=== PATIENT | female | born 2000 | race Asian ===

== ENCOUNTER 2023-11-25 06:42 | Observation (INO) ==
--- NOTE | 2023-11-12 12:10 | Anesthesiology Consultation ---
Date of Service November 12, 2023 Assessment & Plan (1) Encounter for pre-operative examination: Chart Review Chart Review: Acceptable Risk for Surgery and Patient NOT seen in Pre Admission Testing Consults Requested none History Surgery Operation Date: 11/25/23 10:25 Proposed Procedures p Robotic assisted Dismembered Laparoscopic Pyeloplasty - Telly Garrett DO Height/Weight Height: 5 ft 6 in Weight: 66.224 kg Allergies Allergy/AdvReac Type Severity Reaction Status Date / Time haloperidol [From Haldol] AdvReac Mild muscle Verified 11/11/23 13:21 spasms Medications Home Medications Medication Instructions Recorded Confirmed Last Taken testosterone cypionate 200 mg/mL 200 mg IM WK 09/17/20 11/11/23 10/11/20 intramuscular oil (Depo-Testosterone) amphetamine sulfate 20 mg 20 mg PO QPM 11/11/23 11/11/23 Unknown disintegrating tablet dextroamphetamine-amphetamine 10 30 mg PO QAM 11/11/23 11/11/23 Unknown mg tablet vilazodone 20 mg tablet 20 mg PO QAM 11/11/23 11/11/23 Unknown Past Medical History Medical History [id number] transgender person Obstruction of right ureteropelvic junction (UPJ) Hydronephrosis, right History of asthma "seasonal" as a child, had to be hospitalized, no issue since approx. age 10 ADHD History of cardiac murmur as a child History of cleft lip with surgical repair Depression Anxiety Past Family History Family History Unknown Unknown family medical history adopted Past Surgical History Surgical History History of wisdom tooth extraction (10/2022) Hx of hysterectomy (09/2020) Hx of bilateral mastectomy (11/2019) History of repair of cleft lip as a child, age 10 months Hx of removal of cyst right arm > benign History of root canal procedure Social History Smoking Status: Never smoker Do You Dip or Chew Tobacco: No Hx Alcohol Use: Yes alcohol intake frequency: a few times a week Hx Substance Use: No substance use type: does not use Testing Laboratory Results Laboratory Tests 11/09/23 16:17 WBC 3.78 L Hgb 17.2 H Hct 49.0 H Plt Count 288 Sodium 137 Potassium 3.8 Chloride 102 Carbon Dioxide 29 BUN 15 Creatinine 1.26 H Glucose 73
--- NOTE | 2023-11-25 07:13 | History & Physical Report ---
Date of Service November 25, 2023 Assessment & Plan (1) Obstruction of right ureteropelvic junction (UPJ): (2) Hydronephrosis, right: Plan Patient with significant hydronephrosis on the right with renal lasix scan showing sign of UPJ obstruction on the right with approx 22% split function. No severe infection or bleeding. Pain in flank with bother. Had been following and worked up by Dr. Aiken. Reviewed options. Wanted to proceed with dismembered pyeloplasty. Discussed recovery. Discussed drain and catheter. Reviewed stent after procedure. Will likely have stent for approx 4 weeks. Risks and benefits discussed at length for procedure. These include bleeding, infection, injury to surrounding tissues or organs, and risks associated with anesthesia. Patient states understanding and agrees to proceed. Will sign consent and proceed. Plan for Right Robot Assisted Laparoscopic Dismembered pyeloplasty. History of Present Illness Primary Care Provider: Parisa Allen MD Patient here for procedure. No changes in medical issues. Had been following with Dr. Aiken. 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 Un derwent CT last year. Had Renal Lasix scan. Significant difference in function between kidney. Significant obstruction. No major changes in urinary issues. Continued issues and concerns. No change in pain or discomfort. No severe fevers or chills. No chest pain or shortness of breath. Risks and benefits discussed at length for procedure. These include bleeding, infection, injury to surrounding tissues or organs, and risks associated with anesthesia. Patient and/or family states understanding and agrees to proceed. Consent and supporting information completed. Allergies Allergy/AdvReac Type Severity Reaction Status Date / Time haloperidol [From Haldol] AdvReac Mild muscle Verified 11/25/23 07:01 spasms Home Medications Medication Instructions Recorded Confirmed Type testosterone cypionate 200 mg/mL 200 mg IM WK 09/17/20 11/25/23 History intramuscular oil (Depo-Testosterone) amphetamine sulfate 20 mg 20 mg PO QPM 11/11/23 11/25/23 History disintegrating tablet dextroamphetamine-amphetamine 10 30 mg PO QAM 11/11/23 11/25/23 History mg tablet (Adderall) vilazodone 20 mg tablet (Viibryd) 20 mg PO QAM 11/11/23 11/25/23 History Past Med/Surg History Problem List Obstruction of right ureteropelvic junction (UPJ) Hydronephrosis, right (Acute) Encounter for pre-operative examination Medical History [id number] transgender person Obstruction of right ureteropelvic junction (UPJ) Hydronephrosis, right History of asthma "seasonal" as a child, had to be hospitalized, no issue since approx. age 10 ADHD History of cardiac murmur as a child History of cleft lip with surgical repair Depression Anxiety Surgical History History of wisdom tooth extraction (10/2022) Hx of hysterectomy (09/2020) Hx of bilateral mastectomy (11/2019) History of repair of cleft lip as a child, age 10 months Hx of removal of cyst right arm > benign History of root canal procedure Family History Unknown Unknown family medical history adopted Social History Smoking Status: Never smoker Second Hand Exposure: No; Do You Dip or Chew Tobacco: No; Tobacco Cessation Education Requested by Patient: No Hx Alcohol Use: Yes Hx Substance Use: No Preferred Language: Portuguese Communication Ability: Effective 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 No Acute illness. HEENT: Inspection normal. Normal inspection of face. Normal inspection of neck. Psychologic: Normal affect/No change in mentation. Respiratory: No use of accessory muscles. No respiratory changes or exacerbation or changes with tachypnea or dyspnea. Cardiovascular: No tachycardia Skin: [place] and Dry. No new rashes or visible lesions. Abdomen: Normal inspection. No guarding. PG Care Time/CCT Total # of Minutes Spent Total Time Spent with Patient: Total time spent is greater than 50% in coordination of care (as documented) at patient's floor/unit and/or counseling patient: Coding Level of Care Code None Diagnoses Obstruction of right ureteropelvic junction (UPJ) N13.5 Hydronephrosis, right N13.30
[2023-11-25] MEDS ORDERED: DEXAMETHASONE SOD INJ 4 MG/ML VIAL ONE (07:24)
[2023-11-25] MEDS ORDERED: GLYCOPYRROLATE 0.2 MG/ML VIAL ONE (07:24)
[2023-11-25] MEDS ORDERED: PROPOFOL IV EMULSION 10 MG/ML 20 ML VIAL IV ONE (07:24)
[2023-11-25] MEDS ORDERED: ONDANSETRON INJ 2 MG/ML 2 ML VIAL ONE (07:24)
[2023-11-25] MEDS ORDERED: LIDOCAINE 2% 2 ML VIAL/AMP(20MG/ML) INFIL ONE (07:24)
[2023-11-25] MEDS ORDERED: MIDAZOLAM HCL 1 MG/ML 2ML VIAL ONE (07:25)
[2023-11-25] MEDS ORDERED: ROCURONIUM BROMIDE 10 MG/ML 5 ML VIAL IV ONE ×3 (07:25→11:18)
[2023-11-25] MEDS ORDERED: fentaNYL citrate PF 100 MCG/2 ML VIAL ONE ×2 (07:25→08:29)
[2023-11-25] MEDS ORDERED: SUGAMMADEX SODIUM 200 MG/2 ML VIAL IV ONE (07:25)
[2023-11-25] MEDS: LR 15ML/HR IV SCH (07:31)
[2023-11-25] MEDS ORDERED: ePHEDrine sulfate 50 MG/ML AMP IV PRN (07:58)
[2023-11-25] MEDS ORDERED: ONDANSETRON INJ 2 MG/ML 2 ML VIAL IV PRN ×2 (07:58→13:01)
[2023-11-25] MEDS ORDERED: ATROPINE SULFATE 0.1 MG/ML 10ML SYR IV PRN (07:58)
[2023-11-25] MEDS: ceFAZolin 2000MG 2,000 MG/15 ML SYR IV SCH ×2 (08:15→16:23)
[2023-11-25] MEDS: SURGICEL ABSORB HEMOSTAT 2IN X 14IN TOP ONE (10:46)
[2023-11-25] MEDS: TISSEEL FIBRIN SEALANT 10ML TOP ONE (10:48)
[2023-11-25] MEDS: FLOSEAL HEMOSTATIC MATRIX 10ML TOP ONE (10:48)
[2023-11-25] MEDS: BUPIVACAINE 0.5 % 5 MG/1 ML MPF 30ML VIAL ONE (11:08)
[2023-11-25] MEDS ORDERED: KETOROLAC 30 MG/ML VIAL ONE (11:18)
--- NOTE | 2023-11-25 11:33 | Operative Report ---
PG Post Operative Report Pre & Post Diagnosis Operation Date: 11/25/23 08:15 Pre-Op Diagnosis: Obstruction Right Ureteropelvic Junction Post-Op Diagnosis: Obstruction Right Ureteropelvic Junction I identified the patient and participated in the time-out.: Yes Procedure Operation Date: 11/25/23 08:15 Actual Procedures p Robotic Assisted Laparoscopic Dismembered Pyeloplasty(Right), Lysis of adhesions - Telly Garrett DO Surgeon Telly Garrett, II, DO Ribbon Blocker PATRICIA Ann Estimated Blood Loss 25 Findings Consistent with Post-Op Diagnosis Crossing vessel at the UPJ with significant obstruction. Extensive adhesions of the right lateral wall to the ascending colon. Specimens Right ureteral Segment Drains 7 Fr flat drain 18 Fr Ware 6 Fr x 26 cm Right Anesthesia Type General Complications none Disposition Disposition: Recovery Room Indications Patient with right UPJ obstruction with significant decrease percentage of split function and recurrent bothersome issues. Had work up wit Dr. Aiken. Risks and benefits discussed at length. Patient elected to proceed. Description of Procedure The patient was brought to the operative suite and placed under general endotracheal intubation anesthesia in the supine position. The patient was transferred to lateral position with the right flank exposed. The patient was placed into a flex'ed position and then placed into mild reverse Trendelenberg. At this point, the patient prepped and draped in the usual sterile fashion and a timeout was completed. Preoperative weight based antibiotics had been given. EMMANUELLE's and SCD's were placed on the patient's lower extremities. A catheter was placed by nursing using sterile technique. With the time out completed the patient was flexed and the skin was marked. The lateral port site was anesthetized. A small incision was made into the skin and subcutaneous tissues. A Varess needle was selected and placed. The needle was easily moved and it was irrigated and aspirated without any issues or concerns for placement. Insufflation commenced. Once insufflated, the lateral edge of the rectus sheath was marked and anesthetized. The skin was incised and a camera port was placed. The cavity was insufflated to 15 mmHG. The laparoscopic camera was placed and the abdominal cavity inspected. No concerning features were noted. At this point, the skin was marked for port placement and 8mm working ports were placed. The skin was anesthetized down to fascia and an approx 1cm incision was made to place the 2 x 8mm ports. A 8 mm commercial escrow assistant port was also placed in similar fashion under direct visualization just superior to the umbilicus. Additionally a 5 mm port was placed in the midline superiorly to allow liver retraction. The robot was positioned and docked. The camera was placed and all trocars were positioned under direct visualization. PATRICIA Ann was integral in port placement, camera utilization, and docking procedure. She remained in sterile attire and then proceeded to assist the remainder of the case. The colon was mobilized medially to expose the retroperitoneum and the area assessed. The line of Toldt was then open and extended towards the liver. Adhesions were freed to allow mobilization. An extensive amount of adhesions were noted from the colon to the lateral sidewall and pelvis and were freed. These were dissected with blunt technique. Approx 20 minutes for lysis of adhesions. Very minimal cautery was used to assist dissection and control bleeding. The retroperitoneal fat was assessed. The renal pelvis was found to be significantly dilated and hydronephrotic. With the colon gently retracted medially the retroperitoneal fat was assessed. Immediately the ureter was identified. This was first dissected inferiorly freeing attachments and mobilizing the ureter. Dissection was then taken up towards the hydronephrotic renal pelvis. Care was taken throughout the dissection to avoid significant manipulation or damage to the ureter or the surrounding support structures. Care was taken when dissecting down near the IVC. Minimal manipulation of the gonadal vein or other vessels. The ureter was then followed superiorly. Dissection stayed toward the ureter with minimal retraction and manipulation of the ureter while dissecting along the IVC and the psoas muscle. The dissection was followed to the renal pelvis. A small likely accessory renal artery was identified crossing over the UPJ causing considerable obstruction. The vessel was dissected away from the renal pelvis with minimal manipulation. The tissues around the renal pelvis was thickened and was somewhat adhered to the kidney, the vessel, and the surrounding tissues. Once free the ureter was dissected up to the crossing vessels. Above the crossing vessels the renal pelvis and ureter were further dissected. There was a significant kinking and turning of the ureter due to the crossing vessels with significant hydronephrosis noted directly above. Dissection was taken further superior. The renal pelvis was further freed and mobilized. The main renal vein was able to be identified above the hydronephrotic segment. No major issues or concerns. Dissection was then taken more posteriorly. Care was taken to monitor the renal pelvis and the ureter throughout the dissection process. No major issues were noted. Once the renal pelvis and the ureter were better freed and the crossing vessels were cleared of any attachments. Attention was then taken to the insertion of the ureter at the renal pelvis. There was mild edematous changes around the hydronephrotic renal pelvis. The area was copiously irrigated. The area was inspected a final time before entering into the renal pelvis. At this point the scissors were used to enter the renal pelvis a ute-shaped configuration was able to be excised in the renal pelvis to dismember the ureter. The ureter was then able to be transposed and moved to the anterior position in front of the crossing vessel. The vessel was very anterior and the renal pelvis had to be further freed to allow the transposing over the vessel. Once freed there was less tension on the pelvis. The area was inspected. Urine was irrigated clear and the dissection space as well as renal pelvis were gently irrigated using saline. The fluid was able to be suctioned clear without major issue. No major bleeding was noted. The inspection of the area showed no major signs of issues or problems. The renal pelvis portion was dilated but did not appear to have any major areas of concern or lesion or significant obstruction. Attention was then taken to the proximal ureteral segment. The Robotic Singh scissors were placed and the lateral aspect of the ureter was incised to spatulate a segment of the ureter. Spatulation continued inferiorly to allow a good segment for repair and also to allow the removal of the likely diseased segment that had been obstructed due to the crossing vessels. Adequate length of spatulation was completed. The ureter appeared to mobilize to the renal pelvis without significant tension. Additional dissection of the lateral and anterior attachments of the kidney allowed excellent reapproximation. The ureteral segment was then probed and found to be patent without major issue or problems. At this point attention was taken to the pyeloplasty portion. A 4-0 Vicryl suture was utilized to place the lateral apex stitch. Once this stitch was placed the suture was ran continuously along the posterior edge to reapproximate the ureteral segment to the renal pelvis. Once the first two thirds of the posterior edge were reapproximated utilizing mucosal to mucosal reapproximation attention was then taken back to the lateral apex and an additional 4-0 Vicryl suture was used in a running fashion to begin closing the anterior edge. A 5 Luxembourger open-ended catheter was then placed into the ureteral segment and advanced down to 25 cm into the bladder. A sensor wire was then placed into the catheter and advanced into the bladder. The catheter was removed and a 6 x 26 double-J ureteral stent was placed over the wire into the bladder. The wire was then removed and the proximal coil was positioned in the renal pelvis without major issues or problems. No issues or problems with passing of the stent. The stent did appear to fit into good position. At this point the diseased/atrophic section of the ureter was able to be completely excised and sent for pathological analysis. The edges appear to be free from any major bleeding or areas of concern. The posterior and anterior 4-0 Vicryl sutures were then used to close the torin benita of the pyeloplasty in a running fashion. Mucosal mucosal reapproximation was completed. The entire area was inspected. No major signs of issues or concerns. No signs of leak or other problem. The insufflation pressure was decreased to 10 mmHg and the entire area was inspected. No major bleeding leak or other problems were noted. The area was copiously irrigated. No problems or concerns. Attention was then taken to the remainder of the retroperitoneum and the sidewall. No major issues or problems were discovered. The ureter appeared peristalsing without major issue. The Crossing accessory vessel of the lower pole did not appear to have any issues or problems and was no longer causing tension/obstruction on the renal pelvis. Hemostatic agents Floseal and Surgicel were placed on the dissected tissues and psoas muscle. A 3-0 V-Loc suture was then used to reapproximate the peritoneal tissue over the retroperitoneum. The space was able to be closed without major issue in a running fashion. Tisseel was then placed on the suture line closing the retroperitoneum. The entire abdomen was inspected. No major bleeding or other issues. A 7 Fr Flat drain was placed through the inferior robot arm and the port was removed. It was positioned in the gutter lateral to the liver and colon. This was secured with a nylon 2-0 suture. The entire dissection space was inspected one final time. No bleeding or injuries or areas of concern were noted. No tumor or other concerning features were noted. The kidney appeared to be without injury or area of concern. At this point, the robot was undocked and moved away from the patient. The port sites were all assessed laparoscopically. The other ports were assessed and no issues observed. The port were then able to be removed after draining of the insufflated carbon dioxide. The skin at each site was closed with a 4-0 Monocryl suture in a running fashion. The edges around the drain in the lower abdomen were closed with interrupted Horizontal mattress stitches. The area was cleaned and glue was placed on each incision except for the drain. Bandages were placed around the drain. The patient was cleaned and bandaged. He was moved back into the supine position The patient was cleaned, aroused from anesthesia, and transferred to the pacu in stable condition having tolerated the procedure well with no complications. I was present and participated in all aspects of the procedure. PATRICIA Ann was critical in the portions as mentioned above. A KUB will be ordered in the PACU to confirm the placement of the stent. Patient will be admitted to monitor. Will likely follow-up in approximately 4 weeks for stent removal. Will attempt catheter removal in the morning and likely drain removal in 3-4 hours after the catheter if no major increase in output. I attest to the content of the Intraoperative Record and any orders documented therein. Any exceptions are noted below.
[2023-11-25] MEDS: fentaNYL citrate PF 100 MCG/2 ML VIAL IV PRN (11:58)
--- NOTE | 2023-11-25 12:03 | XRay Report ---
KUB HISTORY: check stent placement COMPARISON: 01/14/2023 FINDINGS: Nonobstructive bowel gas pattern. A catheter projects over the right lateral abdomen with a djacent soft tissue gas. Possible underlying pneumoperitoneum. A right ureteral stent is present whic h appears to be in satisfactory positioning. No renal calculi. No ureteral calculi. No acute fractur e identified. IMPRESSION: 1. Satisfactory positioning of a right ureteral stent. 2. A catheter projects over the right lateral abdomen with adjacent soft tissue gas and possible pneu moperitoneum. ACT 112: Negative or not required by law. The above report was generated using voice recognition software. It may contain grammatical, syntax o r spelling errors. Electronically signed by: Devante White M.D. 11/25/2023 12:02 PM
[2023-11-25] MEDS: hydrALAZINE HCL 20 MG/ML VIAL IV STA (12:08)
[2023-11-25 12:09] LABS: Basophils # (auto) 0.05 K/uL (0.00-0.20); Basophils % (auto) 0.5 %; Eosinophils # (auto) 0.05 K/uL (0.00-0.50); Eosinophils % (auto) 0.5 %; Hematocrit (blood only) 41.9 % (37.0-47.0); Hemoglobin 14.6 g/dl (12.0-16.0); Immature Granulocytes # (auto) 0.05 K/uL (0.01-0.20); Immature Granulocytes % (auto) 0.5 %; Lymphocytes # (auto) 0.77 K/uL (1.20-3.40); Lymphocytes % (auto) 7.5 %; Mean Corpuscular Hgb Conc 34.8 g/dL (32.0-36.0); Mean Platelet Volume 10.9 fL (9.4-12.4); Monocytes # (auto) 0.11 K/uL (0.11-0.59); Monocytes % (auto) 1.1 %; Neutrophils % (auto) 89.9 %; Platelet Count 322 K/uL (130-400); RDW Coefficient of Variation 11.6 % (11.5-14.5); RDW Standard Deviation 36.2 fL (36.4-46.3); Red Blood Count 4.87 M/uL (4.20-5.40); White Blood Count 10.33 K/ul (4.8-10.8)
[2023-11-25 12:30] LABS: Calcium 9.3 mg/dl (8.6-10.3); Potassium 4.1 mmol/L (3.5-5.1)
[2023-11-25 12:36] LABS: BUN Creatinine Ratio 13.2 (10-20); Creatinine Clr Calc Pharmacy 55.9 ml/min; Est GFR (African American) 58.4 ml/min; Est GFR (Non-African American) 50.3 ml/min
[2023-11-25] MEDS ORDERED: MoRPHine SULFATE 2 MG/ML CARP IV PRN (13:01)
[2023-11-25] MEDS: oxyCODONE HCL IR 5 MG TAB (IMMEDIATE RELEASE) PO PRN (13:19)
--- NOTE | 2023-11-25 14:05 | Anesthesiology Progress Note ---
Date of Service November 25, 2023 Anesthesia Post Procedure Vital Signs Vital Signs: Temp Pulse Pulse Resp BP BP Pulse Ox 11/25/23 13:56 97.5 F L 88 16 115/67 100 11/25/23 13:23 11/25/23 12:56 97.9 F 98 H 16 107/64 98 11/25/23 12:40 107 H 14 117/74 98 11/25/23 12:30 97.7 F 93 H 13 133/80 98 11/25/23 12:20 91 H 12 141/97 H 99 11/25/23 12:10 92 H 13 155/92 H 98 11/25/23 12:00 64 13 188/120 H 99 11/25/23 11:50 60 15 202/131 H 100 11/25/23 11:40 87 15 159/121 H 99 11/25/23 11:31 97.2 F L 91 H 11 L 148/111 H 97 11/25/23 07:07 97.5 F L 82 18 134/92 92 O2 Del Method O2 Flow Rate 11/25/23 13:56 Room Air 11/25/23 13:23 Room Air 11/25/23 12:56 Room Air 11/25/23 12:40 Room Air 11/25/23 12:30 Room Air 11/25/23 12:20 Room Air 11/25/23 12:10 Room Air 11/25/23 12:00 Room Air 11/25/23 11:50 Oxymask 6 11/25/23 11:40 Oxymask 6 11/25/23 11:31 Oxymask 6 11/25/23 07:07 Room Air Pain Intensity Abdomen: Pain Intensity: 4 Transfer of Care Handoff Completed per policy Notes Mental Status: alert / awake / arousable and participated in evaluation Patient Amnestic to Procedure: Yes Nausea / Vomiting: adequately controlled Pain: adequately controlled Airway Patency, RR, SpO2: stable & adequate BP & HR: stable & adequate Hydration State: stable & adequate Anesthetic Complications: no major complications apparent and Pt Satisfied with anesthetic care
[2023-11-25] MEDS: hydrALAZINE HCL 20 MG/ML VIAL ONE (14:40)
[2023-11-25] MEDS: MoRPHine SULFATE 4 MG/ML 1 ML CARP\\VIAL IV PRN (15:05)
[2023-11-25] MEDS: LACTATED RINGER'S 1,000 ML IV SCH (15:08)
[2023-11-25] MEDS: VIIBRYD~ORDER AWAITING ACTION SCH (17:06)
[2023-11-25] MEDS: HEPARIN SOD 5,000 UNIT/0.5 ML VIAL SQ SCH (20:46)
[2023-11-25] MEDS: DOCUSATE SODIUM 100 MG CAP PO SCH (20:47)
[2023-11-26 07:11] LABS: Calcium 8.5 mg/dl (8.6-10.3); Creatinine Clr Calc Pharmacy 64.4 ml/min; Est GFR (African American) 69.2 ml/min; Est GFR (Non-African American) 59.7 ml/min; Potassium 4.1 mmol/L (3.5-5.1)
[2023-11-26 07:24] LABS: Basophils # (auto) 0.02 K/uL (0.00-0.20); Basophils % (auto) 0.2 %; Eosinophils # (auto) 0.03 K/uL (0.00-0.50); Eosinophils % (auto) 0.3 %; Hematocrit (blood only) 28.2 % (37.0-47.0); Hemoglobin 9.7 g/dl (12.0-16.0); Immature Granulocytes # (auto) 0.04 K/uL (0.01-0.20); Immature Granulocytes % (auto) 0.4 %; Lymphocytes # (auto) 0.92 K/uL (1.20-3.40); Mean Corpuscular Hgb Conc 34.4 g/dL (32.0-36.0); Mean Corpuscular Volume 87.3 fL (80.0-100.0); Mean Platelet Volume 10.9 fL (9.4-12.4); Monocytes # (auto) 0.73 K/uL (0.11-0.59); Monocytes % (auto) 7.1 %; Platelet Count 210 K/uL (130-400); RDW Coefficient of Variation 11.8 % (11.5-14.5); RDW Standard Deviation 37.3 fL (36.4-46.3); Red Blood Count 3.23 M/uL (4.20-5.40); White Blood Count 10.24 K/ul (4.8-10.8)
[2023-11-26] MEDS: ACETAMINOPHEN 325 MG TAB PO PRN (08:22)
[2023-11-26] MEDS: DEXTROAMPHETAMINE/AMPHETAMINE IR 10 MG TAB PO SCH (08:23)
[2023-11-26] MEDS: oxyCODONE HCL IR 5 MG TAB (IMMEDIATE RELEASE) PO PRN (08:25)
--- NOTE | 2023-11-26 08:30 | Urology Progress Note ---
Date of Service November 26, 2023 Assessment & Plan (1) Obstruction of right ureteropelvic junction (UPJ): (2) Hydronephrosis, right: Plan - POD #1 s/p Robotic Assisted Laparoscopic Rigth Dismembered Pyeloplasty and Lysis of adhesions - Afebrile with stable vitals. - Labs today show no leukocytosis, hemoglobin 9.7, creatinine 1.25 - Ware catheter removed this morning for void trial. - FANNY drain with minimal serosanguineous drainage. 30 mL output documented overnight. - Incisions appropriate - Tolerating diet - Reports minimal pain Plan: - Monitor for void. - Maintain FANNY drain and monitor output. - Advance diet as tolerated. - Encourage ambulation. - Repeat CBC/BMP this afternoon - Continue supportive care and pain management as needed. - Will reassess after lunch, possible discharge home today pending patient progression - Pt reassessed - Voiding spontaneously following catheter removal - FANNY drain with minimal output today. There has been some drainage around drain site. - Remains afebrile and hemodynamically stable. - Repeat labs show no leukocytosis, stable hemoglobin at 9.6, creatinine 1.23. - Reports minimal pain - Ambulating without issue - Tolerating diet - Patient is stable for discharge home today. - FANNY drain to be removed prior to discharge - Expected clinical course reviewed, all questions were answered. - Appropriate postoperative follow-up appointments in place. Plan of care reviewed with Dr. Garrett. Admission and Anticipated Discharge Date Admission Date: November 25, 2023 Subjective Pt seen at bedside this AM Awake, resting in bed on arrival No acute distress Ware removed this morning for void trial Reports some abd pain, has just taken Tylenol. Denies fever, chills, nausea, vomiting. Incisions appropriate. FANNY intact with small amount of serosanguineous drainage - 30 mL output overnight +Flatus. Review of Systems Constitutional: as per Subjective / HPI Gastrointestinal: as per Subjective / HPI Genitourinary: as per Subjective / HPI Physical Exam Constitutional: no acute distress Respiratory: no respiratory distress and no labored breathing Gastrointestinal (Abdomen): Percussion/Palpation: abdomen soft; abdomen nontender Incisions appropriate, Dermabond intact. FANNY drain with minimal serosanguineous drainage. There is a moderate amount of serosanguineous drainage around drain site on gauze pads. Skin: Warm and dry Neurologic: moves all extremities and awake Psychiatric: A+Ox3, euthymic affect Results & Data Vital Signs (Past 12 Hours) Vital Signs Temp Pulse Pulse Resp BP BP Pulse Ox 11/26/23 07:32 36.5 C 57 L 16 97/61 L 97 11/26/23 03:24 36.6 C 67 18 101/68 98 11/25/23 23:33 36.6 C 68 18 99/56 L 99 O2 Del Method 11/26/23 07:32 Room Air 11/26/23 03:24 Room Air 11/25/23 23:33 Room Air PG Care Time/CCT Total # of Minutes Spent Total Time Spent with Patient: Total time spent is greater than 50% in coordination of care (as documented) at patient's floor/unit and/or counseling patient: Coding Level of Care Code None Diagnoses Obstruction of right ureteropelvic junction (UPJ) N13.5 Hydronephrosis, right N13.30
[2023-11-26 12:02] LABS: Basophils # (auto) 0.03 K/uL (0.00-0.20); Basophils % (auto) 0.4 %; Eosinophils # (auto) 0.05 K/uL (0.00-0.50); Eosinophils % (auto) 0.6 %; Hematocrit (blood only) 27.4 % (37.0-47.0); Hemoglobin 9.6 g/dl (12.0-16.0); Immature Granulocytes # (auto) 0.04 K/uL (0.01-0.20); Immature Granulocytes % (auto) 0.5 %; Lymphocytes # (auto) 1.17 K/uL (1.20-3.40); Lymphocytes % (auto) 14.5 %; Mean Corpuscular Hemoglobin 30.5 pg (25.0-34.0); Mean Platelet Volume 10.8 fL (9.4-12.4); Monocytes # (auto) 0.76 K/uL (0.11-0.59); Monocytes % (auto) 9.4 %; Neutrophils # (auto) 6.02 K/uL (1.40-6.50); Neutrophils % (auto) 74.6 %; Platelet Count 195 K/uL (130-400); RDW Coefficient of Variation 11.9 % (11.5-14.5); RDW Standard Deviation 37.3 fL (36.4-46.3); Red Blood Count 3.15 M/uL (4.20-5.40); White Blood Count 8.07 K/ul (4.8-10.8)
[2023-11-26 12:17] LABS: BUN Creatinine Ratio 12.2 (10-20); Calcium 8.6 mg/dl (8.6-10.3); Creatinine Clr Calc Pharmacy 65.5 ml/min; Est GFR (African American) 70.6 ml/min; Est GFR (Non-African American) 60.9 ml/min; Potassium 3.9 mmol/L (3.5-5.1)
[2023-11-26] MEDS: DEXTROAMPHETAMINE/AMPHETAMINE IR 20 MG TAB PO SCH (14:26)
--- NOTE | 2023-11-27 09:15 | Discharge Summary ---
Date of Service November 27, 2023 Admission HPI Per Admitting Provider Patient here for procedure. No changes in medical issues. Had been following with Dr. Aiken. 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 Underwent CT last year. Had Renal Lasix scan. Significant difference in function between kidney. Significant obstruction. No major changes in urinary issues. Continued issues and concerns. No change in pain or discomfort. No severe fevers or chills. No chest pain or shortness of breath. Risks and benefits discussed at length for procedure. These include bleeding, infection, injury to surrounding tissues or organs, and risks associated with anesthesia. Patient and/or family states understanding and agrees to proceed. Consent and supporting information completed. Admission Exam Per Admitting Provider General: Alert/Arousable. No Acute illness. HEENT: Inspection normal. Normal inspection of face. Normal inspection of neck. Psychologic: Normal affect/No change in mentation. Respiratory: No use of accessory muscles. No respiratory changes or exacerbation or changes with tachypnea or dyspnea. Cardiovascular: No tachycardia Skin: Schlater and Dry. No new rashes or visible lesions. Abdomen: Normal inspection. No guarding. Principal Diagnosis Obstruction Right Ureteropelvic Junction Discharge Exam Constitutional no acute distress Respiratory no respiratory distress and no labored breathing Gastrointestinal (Abdomen) Percussion/Palpation: abdomen soft; abdomen nontender Incisions appropriate. Dermabond intact. FANNY drain site covered with gauze dressing with minimal drainage. Skin Warm and dry Neurologic moves all extremities and awake Psychiatric A+Ox3, euthymic affect Discharge Data Allergies Allergy/AdvReac Type Severity Reaction Status Date / Time haloperidol [From Haldol] AdvReac Mild muscle Verified 11/25/23 07:01 spasms Procedures Performed Operation Date: 11/25/23 08:15 Actual Procedures p Robotic Assisted Dismembered Laparoscopic Pyeloplasty(Right) - Telly Garrett DO Hospital Course (1) Obstruction of right ureteropelvic junction (UPJ): (2) Hydronephrosis, right: Plan - POD #1 s/p Robotic Assisted Laparoscopic Rigth Dismembered Pyeloplasty and Lysis of adhesions - Afebrile with stable vitals. - Labs today show no leukocytosis, hemoglobin 9.7, creatinine 1.25 - Ware catheter removed this morning for void trial. - FANNY drain with minimal serosanguineous drainage. 30 mL output documented overnight. - Incisions appropriate - Tolerating diet - Reports minimal pain Plan: - Monitor for void. - Maintain FANNY drain and monitor output. - Advance diet as tolerated. - Encourage ambulation. - Repeat CBC/BMP this afternoon - Continue supportive care and pain management as needed. - Will reassess after lunch, possible discharge home today pending patient progression - Pt reassessed - Voiding spontaneously following catheter removal - FANNY drain with minimal output today. There has been some drainage around drain site. - Remains afebrile and hemodynamically stable. - Repeat labs show no leukocytosis, stable hemoglobin at 9.6, creatinine 1.23. - Reports minimal pain - Ambulating without issue - Tolerating diet - Patient is stable for discharge home today. - FANNY drain to be removed prior to discharge - Expected clinical course reviewed, all questions were answered. - Appropriate postoperative follow-up appointments in place. Plan of care reviewed with Dr. Garrett. Total Time Total Time Spent Total Time Spent (In Minutes): 15 Discharge Plan Discharge Items Patient Disposition: Home - Self-Care Reason For Visit: Obstruction Right Ureteropelvic Junction Discharge Diagnosis: Right UPJ obstruction Activity: Per Instructions section Lifting: No more than 25 pounds Bathing Comment: OK to shower. No tub baths or soaks. Sexual Activity: Wait until after follow-up appointment Exercise/Sports: Wait until after follow-up appointment Driving/Machine Use: Do not drive if taking prescription pain medication. Non-emergency contact: Surgeon and Urologist Call non-emergency contact if: you have any medication questions, your symptoms worsen, your pain is not controlled, your pain is worsening, you have a fever, your wound has increased redness, your wound has increased drainage and your wound pain has increased Follow-up/Referrals: Telly Garrett DO [Physician] - 12/28/23 3:20 pm Parisa Allen MD [Primary Care Provider] - [facility],Nurse [FAKE FOR SCHEDULES] - 12/02/23 9:10 am Diet: Regular Addtl Attending Provider Instructions: Please take all medications as prescribed and keep all follow-ups as scheduled. Please call our office at [phone] with any questions, concerns or need to reschedule appointments for any reason. We are happy to assist you. You can start your antibiotic tomorrow and continue until complete. Recovering at home: We recommend having someone with you for the first few days after surgery to help care for you. It is okay to shower tomorrow. Please avoid swimming, bathing or using hot tub until incisions are well healed. Avoid driving until you are not requiring pain medication any further. Walk at least a few times a day. Increase your distance, as you feel able. Stairs in your home are okay. Please avoid strenuous or sexual activity until your follow-up. We recommend using stool softener (i.e. Colace) to prevent constipation and straining, especially the first two weeks post operatively. Call [facility] at [phone] if you experience: Chest pain or trouble breathing (call [phone] or go to the hospital). Fever of 101F or higher Symptoms of infection at incision site, including redness or swelling, warmth, or bad-smelling drainage If you are unable to urinate Pain that is not controlled with medicines Pending Studies at Discharge: Yes (pathology) Stand-Alone Forms: My [facility] [employer], Pain - Opioid Pain Management, Work/School Release, Smoking Cessation Medications and DC Order Prescriptions: New cephalexin 500 mg capsule 500 mg PO BID 3 Days Qty: 6 0RF oxycodone 5 mg tablet 5 mg PO Q8H PRN (Reason: pain) Qty: 5 0RF Continued testosterone cypionate [Depo-Testosterone] 200 mg/mL oil 200 mg IM WK dextroamphetamine-amphetamine [Adderall] 10 mg tablet 30 mg PO QAM vilazodone [Viibryd] 20 mg Tablet 20 mg PO QAM Rx Instructions: must administer with a meal/food amphetamine sulfate 20 mg Tablet,Disintegrating 20 mg PO QPM Discharge Orders: Discharge Order (Routine); Ordered 11/26/23 Ordered By: Tia Stover/Other Patient Handouts: Healthy Kidneys, Understanding Hydronephrosis Admission Data Admit Date/Time: 11/25/23 11:38 Attending Provider: Telly Garrett Admit Provider: Telly Garrett Primary Care Provider: Parisa Allen Other Interventions: Discharge Summary Assessment (RN) Last Done: 11/26/23 15:03 Coding Level of Care Code 91027 IN/OBS DISCH 30 MIN/LESS Diagnoses Obstruction of right ureteropelvic junction (UPJ) N13.5 Hydronephrosis, right N13.30
== END 2023-11-26 15:40 | disposition home or self-care (01) | DRG 661 ==
LOC: ASU 06:42 → 3E 11:38 → INTOOBSV 11:38